=== PATIENT | female | born 1940 | race Asian ===

== ENCOUNTER 2019-04-12 20:03 | Emergency (ER) | payer OTHER, MEDICAID ==
[~2019-04-12] VITALS: Ht 167.6 cm; Wt 63.5 kg
[2019-04-12 20:15] VITALS: BP_SYST 112
--- NOTE | 2019-04-12 20:20 | NUR ---
tPatient triaged and placed in er hallway. VSS and patient appears in no acute distress at this time. , awaiting available bed, and MD notified of need for MSE.
[2019-04-12 20:37] LABS: BASOPHILS # (AUTO) 0.1 K/uL (0.0-0.2); BASOPHILS % (AUTO) 1.1 % (0.0-2.0); EOSINOPHILS # (AUTO) 0.2 K/uL (0.0-0.4); HEMOGLOBIN 15.8 g/dL (12.0-16.0); LYMPHOCYTES # (AUTO) 2.1 K/uL (1.0-5.5); LYMPHOCYTES % (AUTO) 34.2 % (20.5-51.5); MEAN CORPUSCULAR HEMOGLOBIN 32 pg (27-31); MEAN CORPUSCULAR HGB CONC 33 % (32-36); MEAN CORPUSCULAR VOLUME 96 fL (79.0-98.0); MONOCYTES # (AUTO) 0.8 K/uL (0.0-1.0); MONOCYTES % (AUTO) 12.4 % (1.7-9.3); NEUTROPHILS # (AUTO) 3.1 K/uL (1.8-7.7); NEUTROPHILS % (AUTO) 49.3 % (40.0-70.0); PLATELET COUNT (AUTO) 196 K/uL (130-430); RED BLOOD CELL COUNT(AUTO) 5.02 MIL/uL (4.2-6.2); RED CELL DISTRIBUTION WIDTH 14.5 % (9.0-15.0); WHITE BLOOD COUNT (AUTO) 6.2 K/uL (4.8-10.8)
[2019-04-12 20:56] LABS: ANION GAP 2 (5-15); CALCIUM 8.8 mg/dL (8.4-11.0); CHLORIDE 102 mmol/L (98-107); CREATININE 0.68 mg/dL (0.55-1.30); GLUCOSE 148 mg/dL (70-99); POTASSIUM 3.9 mmol/L (3.5-5.1); SODIUM SERUM 138 mmol/L (136-145); UREA NITROGEN, BLOOD 14 mg/dL (8-21)
[2019-04-12 21:02] LABS: ALANINE AMINOTRANSFERASE 31 U/L (12-78); ALBUMIN 3.3 g/dL (3.4-4.8); ASPARTATE AMINOTRANSFERASE 24 U/L (10-37); TOTAL BILIRUBIN 0.5 mg/dL (0.0-1.0)
[2019-04-12 21:16] LABS: CHOLESTEROL 225 mg/dL (<200); HDL CHOLESTEROL 50 mg/dL (>55); LDL CHOLESTEROL 127 mg/dL (<100); TRIGLYCERIDES 127 mg/dL (30-150)
[2019-04-12 21:51] LABS: ACETAMINOPHEN < 1 ug/mL (1-30); ALCOHOL, BLOOD < 3 mg/dL (<10)
--- NOTE | 2019-04-12 22:40 | NUR ---
79 y/o female BIBA for medical clearance to be transferred to [facility]. Pt has Hx of dementia, bipolar disorder, seizure, anxiety, hyperlipidemia, and HTN. Pt primarily [place] speaking. EMS at bedside. Will continue to monitor.
--- NOTE | 2019-04-12 22:45 | NUR ---
Dr. Downey at bedside examining Pt.
--- NOTE | 2019-04-13 00:10 | NUR ---
Patient to be transferred to [facility]. Is being transferred due to higher level of care. Receiving facility has accepting physician and available space. ER physician has signed transfer form. Patient or responsible libertarian has agreed to transfer and signed form. Patient belongings inventoried and will be sent with patient. Copy of nursing notes, lab reports, EKG, Physicians Orders and X-rays to be sent with patient. Report called to LOU Weiss, at receiving facility. Receiving physician is Dr. Hernandez. [facility] for transfer.
[2019-04-13 00:21] VITALS: BP_SYST 122
--- NOTE | 2019-04-13 00:21 | NUR ---
Pt transfered via BLS w/ [facility]. Report given to EMS, oppurtinuty for questions provided.
== END 2019-04-13 00:21 ==
LOC: SED 20:03
DX: F31.9 Bipolar disorder, unspecified (principal); F03.90 Unspecified dementia, unspecified severity, without behavioral disturbance, psychotic disturbance, mood disturbance, and anxiety; I10 Essential (primary) hypertension; F41.9 Anxiety disorder, unspecified; E78.5 Hyperlipidemia, unspecified
CPT/HCPCS: 36415; 80053; 80061; 83036; 85025; 87081; 99285; G0480; G0481; G0482

== ENCOUNTER 2019-05-04 20:05 | Inpatient (IN) | payer OTHER, MEDICAID ==
[~2019-05-04] VITALS: Ht 154.9 cm; Wt 49.0 kg
[2019-05-04 20:55] VITALS: BP_SYST 142
[2019-05-04] MEDS ORDERED: MORPHINE 2 MG/ML INJ. SYRINGE IVP ONE (22:21)
[2019-05-04] MEDS: MORPHINE 2 MG/ML INJ. SYRINGE IM ONE (22:21)
[2019-05-04 22:54] LABS: BASOPHILS # (AUTO) 0.1 K/uL (0.0-0.2); BASOPHILS % (AUTO) 0.5 % (0.0-2.0); EOSINOPHILS % (AUTO) 0.3 % (0.0-4.0); HEMATOCRIT 40.3 % (36-48); HEMOGLOBIN 13.6 g/dL (12.0-16.0); LYMPHOCYTES # (AUTO) 1.4 K/uL (1.0-5.5); LYMPHOCYTES % (AUTO) 11.3 % (20.5-51.5); MEAN CORPUSCULAR HEMOGLOBIN 32 pg (27-31); MEAN CORPUSCULAR HGB CONC 34 % (32-36); MEAN CORPUSCULAR VOLUME 96 fL (79.0-98.0); MONOCYTES # (AUTO) 1.2 K/uL (0.0-1.0); MONOCYTES % (AUTO) 10.4 % (1.7-9.3); NEUTROPHILS # (AUTO) 9.3 K/uL (1.8-7.7); NEUTROPHILS % (AUTO) 77.5 % (40.0-70.0); PLATELET COUNT (AUTO) 155 K/uL (130-430); RED BLOOD CELL COUNT(AUTO) 4.22 MIL/uL (4.2-6.2); RED CELL DISTRIBUTION WIDTH 14.5 % (9.0-15.0)
[2019-05-04 23:05] LABS: ANION GAP 10 (5-15); CALCIUM 8.3 mg/dL (8.4-11.0); CHLORIDE 100 mmol/L (98-107); CREATININE 0.71 mg/dL (0.55-1.30); GLUCOSE 152 mg/dL (70-99); POTASSIUM 3.6 mmol/L (3.5-5.1); SODIUM SERUM 135 mmol/L (136-145); UREA NITROGEN, BLOOD 14 mg/dL (8-21)
[2019-05-04 23:08] LABS: INR 1.1 (0.8-1.2)
[2019-05-04 23:12] LABS: ALANINE AMINOTRANSFERASE 21 U/L (12-78); ALBUMIN 2.9 g/dL (3.4-4.8); ASPARTATE AMINOTRANSFERASE 23 U/L (10-37); TOTAL BILIRUBIN 1.1 mg/dL (0.0-1.0)
[2019-05-05] MEDS ORDERED: D5/0.45 NS 1,000 ML IV ONE (02:15)
[2019-05-05] MEDS ORDERED: MORPHINE 2 MG/ML INJ. SYRINGE IVP ONE (02:30)
[2019-05-05] MEDS ORDERED: MORPHINE 2 MG/ML INJ. SYRINGE IVP PRN (02:30)
[2019-05-05] MEDS ORDERED: MELA3TAB64 PO (02:55)
[2019-05-05] MEDS ORDERED: FLEETMO RC (02:55)
[2019-05-05] MEDS ORDERED: DONE10TA44 PO (02:55)
[2019-05-05] MEDS ORDERED: DOCU-144 PO (02:55)
[2019-05-05] MEDS ORDERED: CRAN450C PO (02:55)
[2019-05-05] MEDS ORDERED: BISA-79 PO (02:55)
[2019-05-05] MEDS ORDERED: LORA-258 PO (02:55)
[2019-05-05] MEDS ORDERED: ASPI-1153 PO (02:55)
[2019-05-05] MEDS ORDERED: CALC-823 PO (02:55)
[2019-05-05] MEDS ORDERED: FERROUS SULFATE PO (02:55)
[2019-05-05] MEDS ORDERED: CARV3.1246 PO (02:55)
[2019-05-05] MEDS ORDERED: LISI-209 PO (02:55)
[2019-05-05] MEDS ORDERED: MIRT15TA7 PO (02:55)
[2019-05-05] MEDS ORDERED: MOM PO (02:55)
[2019-05-05] MEDS ORDERED: MULT-1117 PO (02:55)
[2019-05-05] MEDS ORDERED: HYDR-4272 PO (02:55)
[2019-05-05] MEDS ORDERED: LIP10 PO (02:55)
[2019-05-05] MEDS ORDERED: DEPAK250 PO (02:55)
[2019-05-05] MEDS ORDERED: ACET-2634 PO (02:55)
[2019-05-05] MEDS ORDERED: ISO10 PO (02:55)
[2019-05-05] MEDS ORDERED: ACET325T53 PO (02:55)
[2019-05-05] MEDS ORDERED: D5/0.45 NS 500 ML IV SCH (03:30)
[2019-05-05] MEDS ORDERED: LORazepam 1 MG TABLET PO PRN (04:00)
[2019-05-05] MEDS ORDERED: ACETAMINOPHEN 500 MG TABLET PO PRN (04:00)
[2019-05-05] MEDS ORDERED: ACETAMINOPHEN 325 MG TABLET PO PRN (04:00)
[2019-05-05] MEDS ORDERED: BISACODYL 5 MG TABLET.DR (DULCOLAX) PO PRN (04:00)
[2019-05-05] MEDS ORDERED: MILK OF MAGNESIA 30 ML UDC PO PRN (04:00)
[2019-05-05] MEDS ORDERED: SODIUM PHOSPHATE,MONO-DIBASIC 133 ML ENEMA RC PRN (04:00)
[2019-05-05 04:14] LABS: BILIRUBIN,URINE 1+ (NEGATIVE); BLOOD, URINE NEGATIVE (NEGATIVE); CLARITY/URINE CLEAR (CLEAR); COLOR,URINE YELLOW (YELLOW); GLUCOSE,URINE NEGATIVE (NEGATIVE); KETONES,URINE NEGATIVE (NEGATIVE); LEUKOCYTE ESTERASE ,URINE NEGATIVE (NEGATIVE); NITRITE, URINE NEGATIVE (NEGATIVE); PH,URINE 5.5 (5.0-8.0); PROTEIN URINE NEGATIVE (NEGATIVE)
[2019-05-05 05:22] VITALS: BP_SYST 139
[2019-05-05] MEDS: D5/0.45 NS 1,000 ML IV SCH (05:52)
[2019-05-05] MEDS ORDERED: ACETAMINOPHEN 500 MG TABLET PO SCH (06:00)
[2019-05-05 06:28] LABS: BASOPHILS % (AUTO) 0.3 % (0.0-2.0); EOSINOPHILS % (AUTO) 0.1 % (0.0-4.0); HEMATOCRIT 40.3 % (36-48); HEMOGLOBIN 13.5 g/dL (12.0-16.0); LYMPHOCYTES # (AUTO) 1.1 K/uL (1.0-5.5); LYMPHOCYTES % (AUTO) 8.6 % (20.5-51.5); MEAN CORPUSCULAR HEMOGLOBIN 32 pg (27-31); MEAN CORPUSCULAR HGB CONC 34 % (32-36); MEAN CORPUSCULAR VOLUME 96 fL (79.0-98.0); MONOCYTES % (AUTO) 7.4 % (1.7-9.3); NEUTROPHILS # (AUTO) 10.9 K/uL (1.8-7.7); NEUTROPHILS % (AUTO) 83.6 % (40.0-70.0); PLATELET COUNT (AUTO) 171 K/uL (130-430); RED CELL DISTRIBUTION WIDTH 14.4 % (9.0-15.0); WHITE BLOOD COUNT (AUTO) 13.1 K/uL (4.8-10.8)
[2019-05-05 06:34] LABS: INR 1.1 (0.8-1.2)
[2019-05-05 06:37] LABS: ALANINE AMINOTRANSFERASE 21 U/L (12-78); ALBUMIN 3.1 g/dL (3.4-4.8); ANION GAP 10 (5-15); ASPARTATE AMINOTRANSFERASE 20 U/L (10-37); CALCIUM 8.7 mg/dL (8.4-11.0); CHLORIDE 99 mmol/L (98-107); CREATININE 0.67 mg/dL (0.55-1.30); GLUCOSE 180 mg/dL (70-99); POTASSIUM 3.8 mmol/L (3.5-5.1); SODIUM SERUM 132 mmol/L (136-145); TOTAL BILIRUBIN 1.3 mg/dL (0.0-1.0); UREA NITROGEN, BLOOD 13 mg/dL (8-21)
[2019-05-05 07:55] VITALS: BP_SYST 116
[2019-05-05] MEDS ORDERED: NA P133E41 RC (08:27)
[2019-05-05] MEDS: DOCUSATE SODIUM 100 MG CAPSULE PO SCH (09:40)
[2019-05-05] MEDS: PANTOPRAZOLE SODIUM 40 MG/VIAL (PROTONIX) IVP SCH (09:40)
[2019-05-05] MEDS: MULTIVITAMINS TAB 1 TABLET PO SCH (09:46)
[2019-05-05] MEDS: CALCIUM CARBONATE/VITAMIN D3 1 TAB TABLET PO SCH (09:46)
[2019-05-05] MEDS: VALPROIC ACID 250 MG CAPSULE (DEPAKENE) PO SCH (09:46)
[2019-05-05] MEDS: ISOSORBIDE MONONITRATE 30 MG TAB.ER.24H PO SCH (09:46)
[2019-05-05] MEDS: CARVEDILOL 3.125 MG TABLET (COREG) PO SCH ×2 (09:48→20:54)
[2019-05-05] MEDS: FERROUS SULFATE 325 MG TABLET.DR PO SCH (09:48)
[2019-05-05] MEDS: MORPHINE 2 MG/ML INJ. SYRINGE IVP PRN ×2 (10:38→16:39)
[2019-05-05 12:41] VITALS: BP_SYST 102
[2019-05-05 16:50] VITALS: BP_SYST 104
[2019-05-05] MEDS ORDERED: BUPIVACAINE /DEX PF 0.75% SPINAL 2 ML AMP INJ ONE (19:20)
[2019-05-05] MEDS ORDERED: MORPHINE SULFATE 10MG/10ML PF AMP EP ONE (19:20)
[2019-05-05] MEDS ORDERED: CEFAZOLIN 1 GM IVPB PREMIX 50 ML IV ONE (19:20)
[2019-05-05] MEDS ORDERED: PROPOFOL 200MG/ 20ML VIAL (DIPRIVAN) IV ONE (19:20)
[2019-05-05] MEDS ORDERED: LR 1,000 ML IV.SOLN IV ONE (19:20)
[2019-05-05 20:00] VITALS: BP_SYST 125
[2019-05-05] MEDS: MIRTAZAPINE 15 MG TABLET PO SCH (20:54)
[2019-05-05] MEDS: DONEPEZIL HCL 5 MG TABLET (ARICEPT) PO SCH (20:54)
[2019-05-05] MEDS: MELATONIN 3 MG TABLET PO SCH (20:55)
[2019-05-05] MEDS: ATORVASTATIN 10 MG TABLET PO SCH (20:55)
[2019-05-05] MEDS: LISINOPRIL 5 MG TABLET PO SCH (20:56)
[2019-05-06 00:10] VITALS: BP_SYST 103
[2019-05-06] MEDS ORDERED: D5/0.45 NS 1,000 ML IV SCH (03:30)
[2019-05-06] MEDS: D5/0.45 NS 1,000 ML IV SCH ×2 (04:16→21:45)
[2019-05-06] MEDS: MORPHINE 2 MG/ML INJ. SYRINGE IVP PRN (04:31)
[2019-05-06 07:56] VITALS: BP_SYST 112
[2019-05-06] MEDS: PANTOPRAZOLE SODIUM 40 MG/VIAL (PROTONIX) IVP SCH (10:20)
[2019-05-06] MEDS: DOCUSATE SODIUM 100 MG CAPSULE PO SCH (10:20)
[2019-05-06] MEDS: CARVEDILOL 3.125 MG TABLET (COREG) PO SCH ×2 (10:21→22:31)
[2019-05-06] MEDS: CALCIUM CARBONATE/VITAMIN D3 1 TAB TABLET PO SCH (10:21)
[2019-05-06] MEDS: VALPROIC ACID 250 MG CAPSULE (DEPAKENE) PO SCH (10:21)
[2019-05-06] MEDS: FERROUS SULFATE 325 MG TABLET.DR PO SCH (10:21)
[2019-05-06] MEDS: MULTIVITAMINS TAB 1 TABLET PO SCH (10:21)
[2019-05-06] MEDS: ISOSORBIDE MONONITRATE 30 MG TAB.ER.24H PO SCH (10:21)
[2019-05-06 12:00] VITALS: BP_SYST 97
[2019-05-06 17:02] VITALS: BP_SYST 108
[2019-05-06] MEDS ORDERED: POLYMYXIN 500,000/BACIT.10,000 UNITS in NS IRR 1 L IR ONE (19:49)
[2019-05-06] MEDS ORDERED: ONDANSETRON HCL 4 MG/2 ML VIAL IVP PRN (20:15)
[2019-05-06] MEDS ORDERED: MORPHINE SULFATE 10MG/10ML PF AMP SP ONE (20:15)
[2019-05-06] MEDS ORDERED: KETOROLAC TROMETHAMINE 60 MG/2 ML VIAL IM PRN (20:15)
[2019-05-06] MEDS ORDERED: fentaNYL CITRATE/PF 100 MCG/2 ML AMP IVP PRN ×2 (20:15)
[2019-05-06] MEDS ORDERED: NALOXONE HCL 0.4 MG/ML AMP (NARCAN) IVP PRN ×2 (20:15)
[2019-05-06] MEDS ORDERED: DIPHENHYDRAMINE INJ 50 MG/ML VIAL IVP PRN (20:15)
[2019-05-06] MEDS ORDERED: NALBUPHINE HCL 10 MG/ML AMP IVP PRN (20:15)
[2019-05-06 21:00] VITALS: BP_SYST 115
[2019-05-06 22:25] VITALS: BP_SYST 100; BP_SYST 119
[2019-05-06] MEDS: DONEPEZIL HCL 5 MG TABLET (ARICEPT) PO SCH (22:27)
[2019-05-06] MEDS: ATORVASTATIN 10 MG TABLET PO SCH (22:28)
[2019-05-06] MEDS: MIRTAZAPINE 15 MG TABLET PO SCH (22:28)
[2019-05-06] MEDS: MELATONIN 3 MG TABLET PO SCH (22:29)
[2019-05-06] MEDS: LISINOPRIL 5 MG TABLET PO SCH (22:32)
[2019-05-07] MEDS: D5/0.45 NS 1,000 ML IV SCH (03:21)
[2019-05-07] MEDS ORDERED: CEFAZOLIN 1 GM IVPB PREMIX 50 ML IV ONE (04:37)
[2019-05-07] MEDS: CEFAZOLIN 1 GM IVPB PREMIX 50 ML IV SCH ×2 (05:07→15:05)
[2019-05-07 07:11] LABS: BASOPHILS # (AUTO) 0.1 K/uL (0.0-0.2); BASOPHILS % (AUTO) 0.5 % (0.0-2.0); EOSINOPHILS # (AUTO) 0.1 K/uL (0.0-0.4); EOSINOPHILS % (AUTO) 0.7 % (0.0-4.0); HEMATOCRIT 34.4 % (36-48); HEMOGLOBIN 11.4 g/dL (12.0-16.0); LYMPHOCYTES # (AUTO) 1.2 K/uL (1.0-5.5); LYMPHOCYTES % (AUTO) 9.4 % (20.5-51.5); MEAN CORPUSCULAR HEMOGLOBIN 32 pg (27-31); MEAN CORPUSCULAR HGB CONC 33 % (32-36); MEAN CORPUSCULAR VOLUME 97 fL (79.0-98.0); MONOCYTES # (AUTO) 0.9 K/uL (0.0-1.0); MONOCYTES % (AUTO) 7.3 % (1.7-9.3); NEUTROPHILS # (AUTO) 10.1 K/uL (1.8-7.7); NEUTROPHILS % (AUTO) 82.1 % (40.0-70.0); PLATELET COUNT (AUTO) 168 K/uL (130-430); RED BLOOD CELL COUNT(AUTO) 3.56 MIL/uL (4.2-6.2); RED CELL DISTRIBUTION WIDTH 14.5 % (9.0-15.0); WHITE BLOOD COUNT (AUTO) 12.3 K/uL (4.8-10.8)
[2019-05-07 08:06] VITALS: BP_SYST 120
[2019-05-07] MEDS: FERROUS SULFATE 325 MG TABLET.DR PO SCH (08:46)
[2019-05-07] MEDS: PANTOPRAZOLE SODIUM 40 MG/VIAL (PROTONIX) IVP SCH (08:46)
[2019-05-07] MEDS: ISOSORBIDE MONONITRATE 30 MG TAB.ER.24H PO SCH (08:46)
[2019-05-07] MEDS: VALPROIC ACID 250 MG CAPSULE (DEPAKENE) PO SCH (08:47)
[2019-05-07] MEDS: CALCIUM CARBONATE/VITAMIN D3 1 TAB TABLET PO SCH (08:47)
[2019-05-07] MEDS: DOCUSATE SODIUM 100 MG CAPSULE PO SCH (08:47)
[2019-05-07] MEDS: MULTIVITAMINS TAB 1 TABLET PO SCH (08:47)
[2019-05-07] MEDS: CARVEDILOL 3.125 MG TABLET (COREG) PO SCH ×2 (08:47→21:14)
[2019-05-07 12:35] VITALS: BP_SYST 108
[2019-05-07 16:17] VITALS: BP_SYST 99
[2019-05-07 20:00] VITALS: BP_SYST 118
[2019-05-07] MEDS: ENOXAPARIN SODIUM 40 MG/0.4 ML SYRINGE SUBCUT SCH (21:06)
[2019-05-07] MEDS: MORPHINE 2 MG/ML INJ. SYRINGE IVP PRN (21:12)
[2019-05-07] MEDS: DONEPEZIL HCL 5 MG TABLET (ARICEPT) PO SCH (21:14)
[2019-05-07] MEDS: LISINOPRIL 5 MG TABLET PO SCH (21:14)
[2019-05-07] MEDS: ATORVASTATIN 10 MG TABLET PO SCH (21:14)
[2019-05-07] MEDS: MIRTAZAPINE 15 MG TABLET PO SCH (21:14)
[2019-05-07] MEDS: MELATONIN 3 MG TABLET PO SCH (21:21)
[2019-05-08 00:51] VITALS: BP_SYST 113
[2019-05-08] MEDS: MORPHINE 2 MG/ML INJ. SYRINGE IVP PRN ×2 (05:05→09:33)
[2019-05-08 07:40] VITALS: BP_SYST 142
[2019-05-08 08:00] VITALS: BP_SYST 129
[2019-05-08] MEDS: MULTIVITAMINS TAB 1 TABLET PO SCH (09:23)
[2019-05-08] MEDS: CALCIUM CARBONATE/VITAMIN D3 1 TAB TABLET PO SCH (09:24)
[2019-05-08] MEDS: VALPROIC ACID 250 MG CAPSULE (DEPAKENE) PO SCH (09:25)
[2019-05-08] MEDS: DOCUSATE SODIUM 100 MG CAPSULE PO SCH (09:26)
[2019-05-08] MEDS: PANTOPRAZOLE SODIUM 40 MG/VIAL (PROTONIX) IVP SCH (09:26)
[2019-05-08] MEDS: ISOSORBIDE MONONITRATE 30 MG TAB.ER.24H PO SCH (09:26)
[2019-05-08] MEDS: ENOXAPARIN SODIUM 40 MG/0.4 ML SYRINGE SUBCUT SCH (09:28)
[2019-05-08] MEDS: FERROUS SULFATE 325 MG TABLET.DR PO SCH (09:31)
[2019-05-08] MEDS: CARVEDILOL 3.125 MG TABLET (COREG) PO SCH ×2 (09:33→22:46)
[2019-05-08 12:08] VITALS: BP_SYST 99
[2019-05-08 16:01] VITALS: BP_SYST 97
[2019-05-08] MEDS: D5/0.45 NS 1,000 ML IV SCH (17:18)
[2019-05-08 21:00] VITALS: BP_SYST 115
[2019-05-08] MEDS: DONEPEZIL HCL 5 MG TABLET (ARICEPT) PO SCH (22:45)
[2019-05-08] MEDS: MIRTAZAPINE 15 MG TABLET PO SCH (22:46)
[2019-05-08] MEDS: ATORVASTATIN 10 MG TABLET PO SCH (22:46)
[2019-05-08] MEDS: LISINOPRIL 5 MG TABLET PO SCH (22:47)
[2019-05-08] MEDS: MELATONIN 3 MG TABLET PO SCH (22:48)
[2019-05-09 01:12] VITALS: BP_SYST 104
[2019-05-09 06:16] LABS: BASOPHILS % (AUTO) 0.6 % (0.0-2.0); EOSINOPHILS # (AUTO) 0.2 K/uL (0.0-0.4); EOSINOPHILS % (AUTO) 2.7 % (0.0-4.0); HEMATOCRIT 32.9 % (36-48); LYMPHOCYTES # (AUTO) 1.4 K/uL (1.0-5.5); MEAN CORPUSCULAR HEMOGLOBIN 33 pg (27-31); MEAN CORPUSCULAR HGB CONC 34 % (32-36); MEAN CORPUSCULAR VOLUME 97 fL (79.0-98.0); MONOCYTES # (AUTO) 0.8 K/uL (0.0-1.0); MONOCYTES % (AUTO) 9.3 % (1.7-9.3); NEUTROPHILS # (AUTO) 6.1 K/uL (1.8-7.7); NEUTROPHILS % (AUTO) 71.4 % (40.0-70.0); PLATELET COUNT (AUTO) 191 K/uL (130-430); RED BLOOD CELL COUNT(AUTO) 3.38 MIL/uL (4.2-6.2); RED CELL DISTRIBUTION WIDTH 14.4 % (9.0-15.0); WHITE BLOOD COUNT (AUTO) 8.5 K/uL (4.8-10.8)
[2019-05-09 06:21] LABS: ANION GAP 8 (5-15); CALCIUM 7.9 mg/dL (8.4-11.0); CHLORIDE 101 mmol/L (98-107); CREATININE 0.52 mg/dL (0.55-1.30); GLUCOSE 142 mg/dL (70-99); POTASSIUM 3.2 mmol/L (3.5-5.1); SODIUM SERUM 136 mmol/L (136-145); UREA NITROGEN, BLOOD 10 mg/dL (8-21)
[2019-05-09 08:10] VITALS: BP_SYST 103
[2019-05-09] MEDS ORDERED: POTASSIUM CHLORIDE 20 MEQ TAB.PRT.SR PO ONE (08:45)
[2019-05-09] MEDS ORDERED: ENOXAPARIN SODIUM 40 MG/0.4 ML SYRINGE SUBCUT ONE (09:00)
[2019-05-09] MEDS: ISOSORBIDE MONONITRATE 30 MG TAB.ER.24H PO SCH (09:00)
[2019-05-09] MEDS: CARVEDILOL 3.125 MG TABLET (COREG) PO SCH ×2 (09:00→20:47)
[2019-05-09] MEDS: MULTIVITAMINS TAB 1 TABLET PO SCH (09:00)
[2019-05-09] MEDS: CALCIUM CARBONATE/VITAMIN D3 1 TAB TABLET PO SCH (09:00)
[2019-05-09] MEDS: DOCUSATE SODIUM 100 MG CAPSULE PO SCH (09:00)
[2019-05-09] MEDS: VALPROIC ACID 250 MG CAPSULE (DEPAKENE) PO SCH (09:01)
[2019-05-09] MEDS: PANTOPRAZOLE SODIUM 40 MG/VIAL (PROTONIX) IVP SCH (09:03)
[2019-05-09] MEDS: FERROUS SULFATE 325 MG TABLET.DR PO SCH (09:03)
[2019-05-09] MEDS: ENOXAPARIN SODIUM 40 MG/0.4 ML SYRINGE SUBCUT SCH (09:04)
[2019-05-09 09:54] VITALS: BP_SYST 103
[2019-05-09 12:36] VITALS: BP_SYST 99
[2019-05-09 16:50] VITALS: BP_SYST 114
[2019-05-09] MEDS: HYDROcodone/ACETAMIN 5-325 MG TAB (NORCO/ VICODIN) PO PRN (17:50)
[2019-05-09 20:00] VITALS: BP_SYST 101
[2019-05-09] MEDS: MIRTAZAPINE 15 MG TABLET PO SCH (20:37)
[2019-05-09] MEDS: DONEPEZIL HCL 5 MG TABLET (ARICEPT) PO SCH (20:37)
[2019-05-09] MEDS: ATORVASTATIN 10 MG TABLET PO SCH (20:37)
[2019-05-09] MEDS: MELATONIN 3 MG TABLET PO SCH (20:40)
[2019-05-09] MEDS: LISINOPRIL 5 MG TABLET PO SCH (20:48)
[2019-05-10 00:46] VITALS: BP_SYST 117
[2019-05-10] MEDS: HYDROcodone/ACETAMIN 5-325 MG TAB (NORCO/ VICODIN) PO PRN (04:19)
[2019-05-10 07:30] VITALS: BP_SYST 142
[2019-05-10] MEDS: PANTOPRAZOLE SODIUM 40 MG/VIAL (PROTONIX) IVP SCH (08:58)
[2019-05-10] MEDS: VALPROIC ACID 250 MG CAPSULE (DEPAKENE) PO SCH (08:58)
[2019-05-10] MEDS: MULTIVITAMINS TAB 1 TABLET PO SCH (08:58)
[2019-05-10] MEDS: FERROUS SULFATE 325 MG TABLET.DR PO SCH (08:58)
[2019-05-10] MEDS: ISOSORBIDE MONONITRATE 30 MG TAB.ER.24H PO SCH (08:58)
[2019-05-10] MEDS: CALCIUM CARBONATE/VITAMIN D3 1 TAB TABLET PO SCH (08:58)
[2019-05-10] MEDS: DOCUSATE SODIUM 100 MG CAPSULE PO SCH (08:59)
[2019-05-10] MEDS: CARVEDILOL 3.125 MG TABLET (COREG) PO SCH (08:59)
[2019-05-10] MEDS: ENOXAPARIN SODIUM 40 MG/0.4 ML SYRINGE SUBCUT SCH (09:00)
[2019-05-10 11:30] VITALS: BP_SYST 90
[2019-05-10 15:57] VITALS: BP_SYST 92
[2019-05-10 16:00] VITALS: BP_SYST 91
[2019-05-10 19:45] VITALS: BP_SYST 118
== END 2019-05-10 20:40 | DRG 481 ==
LOC: SED 20:05 → SMU 05-05 02:15
PROVIDERS: ADMIT Internal Medicine Infectious Disease; ATTEND Internal Medicine Infectious Disease
PROC: 0QS704Z Reposition Left Upper Femur with Internal Fixation Device, Open Approach (ICD-10-PCS; principal; 2019-05-06 18:00)
DX: S72.142A Displaced intertrochanteric fracture of left femur, initial encounter for closed fracture (principal); E44.1 Mild protein-calorie malnutrition; E87.1 Hypo-osmolality and hyponatremia; I25.5 Ischemic cardiomyopathy; I11.0 Hypertensive heart disease with heart failure; G40.909 Epilepsy, unspecified, not intractable, without status epilepticus; F31.9 Bipolar disorder, unspecified; E78.5 Hyperlipidemia, unspecified; F41.9 Anxiety disorder, unspecified; F03.90 Unspecified dementia, unspecified severity, without behavioral disturbance, psychotic disturbance, mood disturbance, and anxiety; I25.10 Atherosclerotic heart disease of native coronary artery without angina pectoris; F17.200 Nicotine dependence, unspecified, uncomplicated; I50.9 Heart failure, unspecified; M81.0 Age-related osteoporosis without current pathological fracture; J44.9 Chronic obstructive pulmonary disease, unspecified; Z66 Do not resuscitate; W18.30XA Fall on same level, unspecified, initial encounter; Y93.89 Activity, other specified; Y92.121 Bathroom in nursing home as the place of occurrence of the external cause; Y99.8 Other external cause status
CPT/HCPCS: 36415; 71045; 72170-TC; 73502; 76000; 80048; 80053; 81003; 85025; 85610-TC; 85730-TC; 87081; 87086; 93005; 93306; 94010; 96374; 96376; 97110-GP; 97530-GP; 99285; C1713; C1769; C9113; J0690; J1650; J2270; J2274; J2704; J3490; J7120